=== PATIENT | male | born 1990 | race African-American/Black ===

== ENCOUNTER 2023-02-07 00:20 | Emergency (ER) | payer OTHER ==
[2023-02-07] MEDS ORDERED: Acetaminophen 500 MG TAB ONE (01:16)
[2023-02-07] MEDS ORDERED: Ketorolac Tromethamine 30 MG/ML VIAL ONE (01:27)
== END 2023-02-07 01:42 ==
LOC: NAV ERS 00:20
DX: S13.9XXA Sprain of joints and ligaments of unspecified parts of neck, initial encounter (principal); S00.93XA Contusion of unspecified part of head, initial encounter; G40.909 Epilepsy, unspecified, not intractable, without status epilepticus; W19.XXXA Unspecified fall, initial encounter
CPT/HCPCS: 70450; 72125; 96374; J1885

== ENCOUNTER 2023-02-12 15:47 | Emergency (ER) | payer OTHER ==
[2023-02-12] MEDS ORDERED: Lidocaine 1% (PF) 30 ML VIAL ONE (15:54)
[2023-02-12] MEDS ORDERED: Boostrix 0.5 ML (Tdap) VIAL (>/=7 yrs of age) ONE (15:54)
== END 2023-02-12 16:20 ==
LOC: NAV ERS 15:47
DX: S01.411A Laceration without foreign body of right cheek and temporomandibular area, initial encounter (principal); W50.0XXA Accidental hit or strike by another person, initial encounter
CPT/HCPCS: 12031; 90471; 90715; J2001